=== PATIENT | female | born 1955 | race Caucasian/White ===

== ENCOUNTER 2017-09-29 16:11 | Inpatient (IN) | payer OTHER ==
[2017-09-29 16:30] LABS: ADD MAN DIFF? NO
[2017-09-29 16:32] LABS: WHITE BLOOD COUNT 18.6 10^3/ul (4.8-10.8)
[2017-09-29 16:32] LABS: BASOPHIL # 0.1 10^3/ul (0.0-0.1); BASOPHILS % 0.6 % (0.0-2.0); EOSINOPHILS # 0.3 10^3/ul (0.0-0.5); EOSINOPHILS % 1.3 % (0.0-7.0); HEMATOCRIT 48.1 % (37.0-47.0); HEMOGLOBIN 15.8 g/dl (12.0-16.0); LYMPHOCYTES # 1.8 10^3/ul (0.8-2.9); LYMPHOCYTES % 9.8 % (15.0-51.0); MEAN CORPUSCULAR HEMOGLOBIN 31.7 pg (29.0-33.0); MEAN CORPUSCULAR HGB CONC 32.8 g/dl (32.0-37.0); MEAN CORPUSCULAR VOLUME 96.4 fl (82.0-101.0); MEAN PLATELET VOLUME 9.5 fl (7.4-10.4); MONOCYTE # 1.2 10^3/ul (0.3-0.9); MONOCYTES % 6.7 % (0.0-11.0); NEUTROPHIL # 15.1 10^3/ul (1.6-7.5); NEUTROPHILS % 81.2 % (39.0-77.0); PLATELET COUNT 328 10^3/UL (140-415); RED BLOOD COUNT 4.99 10^6/ul (4.20-5.40); RED CELL DISTRIBUTION WIDTH 12.1 % (11.5-14.5)
[2017-09-29] MEDS: SOD CHLORIDE 0.9% 1,000 ML IV ×2 (16:37→20:02)
[2017-09-29] MEDS: ONDANSETRON 4 MG INJ IV ×2 (16:37→20:02)
[2017-09-29 16:57] LABS: ALANINE AMINOTRANSFERASE 18 IU/L (13-69); ALBUMIN 4.9 g/dl (3.3-4.9); ALBUMIN/GLOBULIN RATIO 1.25; ALKALINE PHOSPHATASE 92 IU/L (42-121); ANION GAP 20 (8-16); ASPARTATE AMINO TRANSFERASE 38 IU/L (15-46); BILIRUBIN,INDIRECT 0.3 mg/dl (0-1.1); BILIRUBIN,TOTAL 0.3 mg/dl (0.2-1.3); BLOOD UREA NITROGEN 21 mg/dl (7-20); CALCIUM 10.1 mg/dl (8.4-10.2); CARBON DIOXIDE 27 mmol/L (21-31); CHLORIDE 104 mmol/L (97-110); CREATININE 0.82 mg/dl (0.44-1.00); GLUCOSE 128 mg/dl (70-220); LIPASE 23 U/L (23-300); POTASSIUM 4.5 mmol/L (3.5-5.1); SODIUM 146 mmol/L (135-144); TOTAL PROTEIN 8.8 g/dl (6.1-8.1)
[2017-09-29 17:03] LABS: ETHANOL < 10.0 mg/dl
[2017-09-29 17:09] LABS: TROPONIN-I < 0.012 ng/ml (0.000-0.120)
[2017-09-29] MEDS: IOHEXOL 100 ML (18:15)
[2017-09-29] MEDS: SOD CHLORIDE 0.9% 100 ML (18:15)
[2017-09-29] MEDS: HYDROmorphONE 1 MG/5 ML IV SYRINGE IV (18:41)
[2017-09-29 18:47] LABS: INR 1.02; PROTIME 13.5 Sec (11.9-14.9); PT RATIO 1.1
[2017-09-29 18:48] LABS: PARTIAL THROMBOPLASTIN TIME 31.8 Sec (25.0-35.0)
[2017-09-29 18:49] LABS: LACTIC ACID 1.8 mmol/L (0.5-2.0)
[2017-09-29 19:04] LABS: ADD UMIC YES; UR AMORPHOUS CRYSTAL FEW /HPF (NONE SEEN); UR ASCORBIC ACID NEGATIVE (NEGATIVE); UR BILIRUBIN (Dip) NEGATIVE (NEGATIVE); UR BLOOD (Dip) 2+ mg/dL (NEGATIVE); UR CLARITY SLIGHTLY CLOUDY (CLEAR); UR COLOR YELLOW (YELLOW); UR GLUCOSE (Dip) NEGATIVE (NEGATIVE); UR KETONES (Dip) NEGATIVE (NEGATIVE); UR LEUKOCYTE ESTERASE (Dip) NEGATIVE Leu/ul (NEGATIVE); UR NITRITE (Dip) NEGATIVE (NEGATIVE); UR RBC 34 /HPF (0-5); UR SPECIFIC GRAVITY (Dip) 1.014 (1.003-1.030); UR TOTAL PROTEIN (Dip) NEGATIVE (NEGATIVE); UR UROBILINOGEN (Dip) NEGATIVE (NEGATIVE); UR WBC 1 /HPF (0-5)
[2017-09-29 19:56] LABS: AMPHETAMINE/METHAMPHETAMINE POSITIVE (NEGATIVE)
[2017-09-29 19:57] LABS: BARBITURATES NEGATIVE (NEGATIVE); BENZODIAZEPINES NEGATIVE (NEGATIVE); CANNABINOIDS POSITIVE (NEGATIVE); COCAINE NEGATIVE (NEGATIVE); OPIATES NEGATIVE (NEGATIVE)
[2017-09-29] MEDS: LORAZEPAM 2 MG INJ IV (19:58)
[2017-09-29] MEDS ORDERED: ONDANSETRON 4 MG INJ IV (20:00)
[2017-09-29] MEDS ORDERED: ACETAMINOPHEN 325 MG TAB PO (20:00)
[2017-09-29] MEDS: PIPER-TAZO 3.375 GM IV (PMX) 100 ML IVPB (20:40)
[2017-09-29] MEDS ORDERED: SOD CHLORIDE 0.9% 1,000 ML IV (22:15)
[2017-09-29] MEDS ORDERED: LORAZEPAM 2 MG INJ IV ×2 (22:30)
[2017-09-29] MEDS ORDERED: NACL 0.9% 3 ML SYG IV (22:30)
[2017-09-29 23:28] LABS: MAGNESIUM 1.9 mg/dl (1.7-2.5)
[2017-09-30] MEDS: LEVETIRACETAM 1000 MG (PMX) 100 ML IVPB ×3 (00:37→20:32)
[2017-09-30] MEDS: PIPER-TAZO 3.375 GM IV (PMX) 100 ML IVPB ×4 (01:31→18:14)
[2017-09-30] MEDS: DEXTROSE 5%-0.45% NACL 1,000 ML IV ×3 (03:20→18:09)
[2017-09-30 06:16] LABS: ADD MAN DIFF? NO
[2017-09-30 06:20] LABS: WHITE BLOOD COUNT 10.7 10^3/ul (4.8-10.8)
[2017-09-30 06:20] LABS: BASOPHIL # 0.1 10^3/ul (0.0-0.1); BASOPHILS % 0.8 % (0.0-2.0); EOSINOPHILS # 0.5 10^3/ul (0.0-0.5); EOSINOPHILS % 4.3 % (0.0-7.0); HEMATOCRIT 39.8 % (37.0-47.0); HEMOGLOBIN 12.8 g/dl (12.0-16.0); LYMPHOCYTES # 2.8 10^3/ul (0.8-2.9); LYMPHOCYTES % 26.3 % (15.0-51.0); MEAN CORPUSCULAR HEMOGLOBIN 31.4 pg (29.0-33.0); MEAN CORPUSCULAR HGB CONC 32.2 g/dl (32.0-37.0); MEAN CORPUSCULAR VOLUME 97.8 fl (82.0-101.0); MEAN PLATELET VOLUME 9.1 fl (7.4-10.4); MONOCYTE # 0.9 10^3/ul (0.3-0.9); MONOCYTES % 8.5 % (0.0-11.0); NEUTROPHIL # 6.4 10^3/ul (1.6-7.5); NEUTROPHILS % 59.7 % (39.0-77.0); PLATELET COUNT 314 10^3/UL (140-415); RED BLOOD COUNT 4.07 10^6/ul (4.20-5.40); RED CELL DISTRIBUTION WIDTH 12.4 % (11.5-14.5)
[2017-09-30 06:51] LABS: ALANINE AMINOTRANSFERASE 20 IU/L (13-69); ALBUMIN 3.5 g/dl (3.3-4.9); ALBUMIN/GLOBULIN RATIO 1.29; ALKALINE PHOSPHATASE 57 IU/L (42-121); ANION GAP 9 (8-16); ASPARTATE AMINO TRANSFERASE 20 IU/L (15-46); BILIRUBIN,INDIRECT 0.6 mg/dl (0-1.1); BILIRUBIN,TOTAL 0.6 mg/dl (0.2-1.3); BLOOD UREA NITROGEN 14 mg/dl (7-20); CALCIUM 8.6 mg/dl (8.4-10.2); CARBON DIOXIDE 32 mmol/L (21-31); CHLORIDE 108 mmol/L (97-110); CHOL/HDL RATIO 3.5 RATIO; CHOLESTEROL 182 mg/dl (100-200); CREATININE 0.83 mg/dl (0.44-1.00); GLUCOSE 94 mg/dl (70-220); HDL CHOLESTEROL 51 mg/dl (35-98); LDL CHOLESTEROL,CALCULATED 103 mg/dl; POTASSIUM 4.1 mmol/L (3.5-5.1); SODIUM 145 mmol/L (135-144); TOTAL PROTEIN 6.2 g/dl (6.1-8.1); TRIGLYCERIDES 141 mg/dl (0-149)
[2017-09-30 06:59] LABS: HEMOGLOBIN A1C 5.6 % (0-5.9)
[2017-09-30] MEDS: DIATR MEGLU/DIATRIZOATE SODIUM 120 ML BTL (10:42)
[2017-09-30] MEDS: morphine 2 MG INJ IV ×2 (16:10→20:16)
[2017-10-01] MEDS: PIPER-TAZO 3.375 GM IV (PMX) 100 ML IVPB ×4 (00:33→18:27)
[2017-10-01] MEDS: DEXTROSE 5%-0.45% NACL 1,000 ML IV ×3 (05:39→18:28)
[2017-10-01 05:51] LABS: ADD MAN DIFF? NO
[2017-10-01 06:02] LABS: WHITE BLOOD COUNT 7.5 10^3/ul (4.8-10.8)
[2017-10-01 06:02] LABS: BASOPHIL # 0.1 10^3/ul (0.0-0.1); BASOPHILS % 1.2 % (0.0-2.0); EOSINOPHILS # 0.5 10^3/ul (0.0-0.5); EOSINOPHILS % 6.3 % (0.0-7.0); HEMOGLOBIN 12.7 g/dl (12.0-16.0); LYMPHOCYTES # 2.3 10^3/ul (0.8-2.9); LYMPHOCYTES % 30.3 % (15.0-51.0); MEAN CORPUSCULAR HEMOGLOBIN 31.6 pg (29.0-33.0); MEAN CORPUSCULAR HGB CONC 32.6 g/dl (32.0-37.0); MEAN PLATELET VOLUME 8.9 fl (7.4-10.4); MONOCYTE # 0.6 10^3/ul (0.3-0.9); MONOCYTES % 8.2 % (0.0-11.0); NEUTROPHILS % 53.7 % (39.0-77.0); PLATELET COUNT 289 10^3/UL (140-415); RED BLOOD COUNT 4.02 10^6/ul (4.20-5.40); RED CELL DISTRIBUTION WIDTH 12.1 % (11.5-14.5)
[2017-10-01 06:14] LABS: ALANINE AMINOTRANSFERASE 17 IU/L (13-69); ALBUMIN 3.6 g/dl (3.3-4.9); ALBUMIN/GLOBULIN RATIO 1.24; ALKALINE PHOSPHATASE 60 IU/L (42-121); ANION GAP 12 (8-16); ASPARTATE AMINO TRANSFERASE 17 IU/L (15-46); BILIRUBIN,INDIRECT 0.5 mg/dl (0-1.1); BILIRUBIN,TOTAL 0.5 mg/dl (0.2-1.3); BLOOD UREA NITROGEN 11 mg/dl (7-20); CALCIUM 8.4 mg/dl (8.4-10.2); CARBON DIOXIDE 29 mmol/L (21-31); CHLORIDE 104 mmol/L (97-110); CREATININE 0.77 mg/dl (0.44-1.00); GLUCOSE 101 mg/dl (70-220); POTASSIUM 3.4 mmol/L (3.5-5.1); SODIUM 142 mmol/L (135-144); TOTAL PROTEIN 6.5 g/dl (6.1-8.1)
[2017-10-01 06:20] LABS: PHOSPHORUS 4.9 mg/dl (2.5-4.9)
[2017-10-01] MEDS: LEVETIRACETAM 1000 MG (PMX) 100 ML IVPB ×2 (08:18→20:13)
[2017-10-01] MEDS: morphine 2 MG INJ IV ×3 (09:49→20:17)
[2017-10-01] MEDS: POTASSIUM CHLORIDE (SR) 20 MEQ TAB PO (11:12)
[2017-10-02] MEDS: PIPER-TAZO 3.375 GM IV (PMX) 100 ML IVPB ×4 (00:22→18:05)
[2017-10-02 06:11] LABS: ADD MAN DIFF? NO
[2017-10-02 06:12] LABS: BASOPHIL # 0.1 10^3/ul (0.0-0.1); EOSINOPHILS # 0.5 10^3/ul (0.0-0.5); EOSINOPHILS % 6.6 % (0.0-7.0); HEMATOCRIT 40.3 % (37.0-47.0); HEMOGLOBIN 13.3 g/dl (12.0-16.0); LYMPHOCYTES # 2.1 10^3/ul (0.8-2.9); LYMPHOCYTES % 29.5 % (15.0-51.0); MEAN CORPUSCULAR HEMOGLOBIN 31.4 pg (29.0-33.0); MEAN PLATELET VOLUME 8.8 fl (7.4-10.4); MONOCYTE # 0.7 10^3/ul (0.3-0.9); MONOCYTES % 9.3 % (0.0-11.0); NEUTROPHIL # 3.8 10^3/ul (1.6-7.5); NEUTROPHILS % 53.3 % (39.0-77.0); PLATELET COUNT 288 10^3/UL (140-415); RED BLOOD COUNT 4.24 10^6/ul (4.20-5.40)
[2017-10-02 06:12] LABS: WHITE BLOOD COUNT 7.1 10^3/ul (4.8-10.8)
[2017-10-02] MEDS: DEXTROSE 5%-0.45% NACL 1,000 ML IV (06:26)
[2017-10-02 06:29] LABS: MAGNESIUM 1.9 mg/dl (1.7-2.5)
[2017-10-02 06:29] LABS: PHOSPHORUS 4.8 mg/dl (2.5-4.9)
[2017-10-02 06:49] LABS: ANION GAP 9 (8-16); BLOOD UREA NITROGEN 9 mg/dl (7-20); CARBON DIOXIDE 30 mmol/L (21-31); CHLORIDE 106 mmol/L (97-110); CREATININE 0.78 mg/dl (0.44-1.00); GLUCOSE 102 mg/dl (70-220); POTASSIUM 3.9 mmol/L (3.5-5.1); SODIUM 141 mmol/L (135-144)
[2017-10-02] MEDS: LEVETIRACETAM 1000 MG (PMX) 100 ML IVPB (08:50)
[2017-10-02] MEDS: morphine 2 MG INJ IV ×2 (11:35→20:20)
[2017-10-02] MEDS: ONDANSETRON 4 MG INJ IV (11:45)
[2017-10-02] MEDS ORDERED: DIATR MEGLU/DIATRIZOATE SODIUM 120 ML BTL (15:46)
[2017-10-02] MEDS: LORAZEPAM 2 MG INJ IV ×2 (18:31→20:38)
[2017-10-02] MEDS: LEVETIRACETAM 1500 MG (PMX) 100 ML IVPB (20:23)
[2017-10-03] MEDS: PIPER-TAZO 3.375 GM IV (PMX) 100 ML IVPB ×4 (00:18→18:49)
[2017-10-03] MEDS: CYCLOBENZAPRINE 10 MG TAB PO ×2 (02:08→14:24)
[2017-10-03 06:04] LABS: ADD MAN DIFF? NO
[2017-10-03 06:09] LABS: WHITE BLOOD COUNT 8.4 10^3/ul (4.8-10.8)
[2017-10-03 06:09] LABS: BASOPHIL # 0.1 10^3/ul (0.0-0.1); BASOPHILS % 1.1 % (0.0-2.0); EOSINOPHILS # 0.5 10^3/ul (0.0-0.5); EOSINOPHILS % 5.6 % (0.0-7.0); HEMATOCRIT 40.3 % (37.0-47.0); HEMOGLOBIN 13.2 g/dl (12.0-16.0); LYMPHOCYTES # 2.1 10^3/ul (0.8-2.9); LYMPHOCYTES % 24.7 % (15.0-51.0); MEAN CORPUSCULAR HEMOGLOBIN 31.5 pg (29.0-33.0); MEAN CORPUSCULAR HGB CONC 32.8 g/dl (32.0-37.0); MEAN CORPUSCULAR VOLUME 96.2 fl (82.0-101.0); MEAN PLATELET VOLUME 8.8 fl (7.4-10.4); MONOCYTE # 0.8 10^3/ul (0.3-0.9); MONOCYTES % 9.5 % (0.0-11.0); NEUTROPHILS % 58.7 % (39.0-77.0); PLATELET COUNT 270 10^3/UL (140-415); RED BLOOD COUNT 4.19 10^6/ul (4.20-5.40); RED CELL DISTRIBUTION WIDTH 11.8 % (11.5-14.5)
[2017-10-03 06:37] LABS: ALANINE AMINOTRANSFERASE 18 IU/L (13-69); ALBUMIN 3.7 g/dl (3.3-4.9); ALBUMIN/GLOBULIN RATIO 1.32; ALKALINE PHOSPHATASE 51 IU/L (42-121); ANION GAP 12 (8-16); ASPARTATE AMINO TRANSFERASE 16 IU/L (15-46); BILIRUBIN,INDIRECT 0.5 mg/dl (0-1.1); BILIRUBIN,TOTAL 0.5 mg/dl (0.2-1.3); BLOOD UREA NITROGEN 10 mg/dl (7-20); CALCIUM 8.8 mg/dl (8.4-10.2); CARBON DIOXIDE 30 mmol/L (21-31); CHLORIDE 106 mmol/L (97-110); CREATININE 0.83 mg/dl (0.44-1.00); GLUCOSE 91 mg/dl (70-220); POTASSIUM 3.5 mmol/L (3.5-5.1); SODIUM 144 mmol/L (135-144); TOTAL PROTEIN 6.5 g/dl (6.1-8.1)
[2017-10-03 06:43] LABS: PHOSPHORUS 4.5 mg/dl (2.5-4.9)
[2017-10-03 07:22] LABS: CREATINE KINASE 31 IU/L (23-200)
[2017-10-03] MEDS: DIAZEPAM 5 MG/ML SYG IV (07:37)
[2017-10-03] MEDS: LEVETIRACETAM 1500 MG (PMX) 100 ML IVPB ×2 (08:11→21:11)
[2017-10-03] MEDS: LORAZEPAM 2 MG INJ IV (08:11)
[2017-10-03] MEDS: SOD CHLORIDE 0.9% 1,000 ML IV ×2 (10:57→21:12)
[2017-10-03 16:13] LABS: ADD UMIC YES; UR ASCORBIC ACID NEGATIVE (NEGATIVE); UR BILIRUBIN (Dip) NEGATIVE (NEGATIVE); UR BLOOD (Dip) 2+ mg/dL (NEGATIVE); UR CLARITY CLEAR (CLEAR); UR COLOR STRAW (YELLOW); UR GLUCOSE (Dip) NEGATIVE (NEGATIVE); UR KETONES (Dip) NEGATIVE (NEGATIVE); UR LEUKOCYTE ESTERASE (Dip) NEGATIVE Leu/ul (NEGATIVE); UR NITRITE (Dip) NEGATIVE (NEGATIVE); UR RBC 20 /HPF (0-5); UR SPECIFIC GRAVITY (Dip) 1.008 (1.003-1.030); UR TOTAL PROTEIN (Dip) NEGATIVE (NEGATIVE); UR UROBILINOGEN (Dip) NEGATIVE (NEGATIVE); UR WBC 1 /HPF (0-5)
[2017-10-03] MEDS: BACLOFEN 10 MG TAB PO ×2 (16:29→21:12)
[2017-10-03] MEDS: KETOROLAC 30 MG INJ IV (16:32)
[2017-10-04] MEDS: PIPER-TAZO 3.375 GM IV (PMX) 100 ML IVPB ×4 (00:49→18:17)
[2017-10-04] MEDS: SOD CHLORIDE 0.9% 1,000 ML IV ×2 (05:30→12:21)
[2017-10-04 06:01] LABS: ADD MAN DIFF? NO
[2017-10-04 06:22] LABS: BASOPHIL # 0.1 10^3/ul (0.0-0.1); BASOPHILS % 1.3 % (0.0-2.0); EOSINOPHILS # 0.4 10^3/ul (0.0-0.5); EOSINOPHILS % 5.3 % (0.0-7.0); HEMATOCRIT 40.6 % (37.0-47.0); HEMOGLOBIN 13.5 g/dl (12.0-16.0); LYMPHOCYTES # 1.9 10^3/ul (0.8-2.9); MEAN CORPUSCULAR HEMOGLOBIN 31.4 pg (29.0-33.0); MEAN CORPUSCULAR HGB CONC 33.3 g/dl (32.0-37.0); MEAN CORPUSCULAR VOLUME 94.4 fl (82.0-101.0); MEAN PLATELET VOLUME 8.9 fl (7.4-10.4); MONOCYTE # 0.6 10^3/ul (0.3-0.9); MONOCYTES % 9.1 % (0.0-11.0); PLATELET COUNT 274 10^3/UL (140-415)
[2017-10-04 06:40] LABS: ANION GAP 12 (8-16); BLOOD UREA NITROGEN 11 mg/dl (7-20); CALCIUM 8.8 mg/dl (8.4-10.2); CARBON DIOXIDE 30 mmol/L (21-31); CHLORIDE 109 mmol/L (97-110); CREATININE 0.81 mg/dl (0.44-1.00); GLUCOSE 93 mg/dl (70-220); POTASSIUM 3.6 mmol/L (3.5-5.1); SODIUM 147 mmol/L (135-144)
[2017-10-04 06:50] LABS: PHOSPHORUS 4.4 mg/dl (2.5-4.9)
[2017-10-04 06:50] LABS: MAGNESIUM 1.9 mg/dl (1.7-2.5)
[2017-10-04] MEDS: BACLOFEN 10 MG TAB PO ×2 (09:34→12:27)
[2017-10-04] MEDS: CYCLOBENZAPRINE 10 MG TAB PO (09:34)
[2017-10-04] MEDS: LEVETIRACETAM 1500 MG (PMX) 100 ML IVPB (09:35)
[2017-10-04] MEDS: ALBUTEROL 0.083% (NEB) 2.5 MG/3 ML AMP HHN (10:39)
[2017-10-04 11:17] LABS: FREE T4 (FREE THYROXINE) 0.69 ng/dl (0.78-2.44)
== END 2017-10-04 19:10 | disposition home or self-care (01) | DRG 392 ==
LOC: E/R 16:11 → MS2 19:36
DX: R11.2 Nausea with vomiting, unspecified (principal); G40.909 Epilepsy, unspecified, not intractable, without status epilepticus; Z72.0 Tobacco use; D72.829 Elevated white blood cell count, unspecified; R10.9 Unspecified abdominal pain; R14.0 Abdominal distension (gaseous); R19.7 Diarrhea, unspecified; R25.2 Cramp and spasm
CPT/HCPCS: 36415; 71045; 74176; 74250; 75635; 80048; 80053; 80061; 80307; 81001; 82550; 83036; 83605; 83690; 83735; 84100; 84439; 84443; 84484; 85025; 85610; 85730; 86674; 87040; 87045; 87075; 93005; 94664; 96374; 96375; 96376; 97161; 99285-25

== ENCOUNTER 2017-10-15 16:25 | Outpatient (CLI) | payer OTHER | END 2017-10-15 16:42 | disposition home or self-care (01) | LOC: DCC 16:25 | DX: R10.9 Unspecified abdominal pain (principal); G40.909 Epilepsy, unspecified, not intractable, without status epilepticus; I70.0 Atherosclerosis of aorta; Z72.0 Tobacco use | CPT/HCPCS: G0463 ==

== ENCOUNTER 2018-10-10 01:33 | Emergency (ER) | payer OTHER ==
[2018-10-10] MEDS: HYDROCODONE/APAP (5/325) TAB PO (03:23)
[2018-10-10] MEDS: NAPROXEN 500 MG TAB PO (03:23)
== END 2018-10-10 03:32 | disposition home or self-care (01) ==
LOC: FTE 01:33
DX: M79.641 Pain in right hand (principal); M79.642 Pain in left hand
CPT/HCPCS: 99283; Z7502